=== PATIENT | female | born 1950 | race Caucasian/White ===

== ENCOUNTER 2024-01-25 06:45 | Day surgery (SDC) | payer MEDICARE, MEDICAID, SELFPAY ==
[2024-01-25] VITALS (12 sets, daily range): BP systolic 115–140; BP diastolic 58–72; PULSE 58–83; RESP 17–22; TEMP 36.3–36.6; O2SAT 92–96; BMI 31.8
--- NOTE | 2024-01-25 07:04 | ECG_ITS ---
[facility] Test Date: 2024-01-25 Pat Name: Elva Bejarano Department: Room: Gender: Female [employer] Former: : 1950 Requested By: Lisbeth Jerry Order Number: [id number] Chrystal MD: Kathryn Vergara M.D. Measurements Intervals [place] Rate: 74 P: 48 [place]: 186 QRS: 50 QRSD: 98 T: 60 QT: 391 QTc: 434 Interpretive Statements SINUS RHYTHM NONSPECIFIC T-WAVE ABNORMALITY No previous ECG available for comparison Electronically Signed On 01-25-2024 23:02:38 CDT by Kathryn Vergara M.D. [id number]
[2024-01-25] MEDS: sodium chloride 0.9% 1,000 ML 30 ML IV (07:30)
[2024-01-25 07:58] LABS: Blood Urea Nitrogen 18 mg/dL (8-23); Calcium 8.9 mg/dL (8.5-10.5); Carbon Dioxide 24 mmol/L (22-29); Chloride 101 mmol/L (98-107); Glucose 105 mg/dL (65-115); Osmolality Calculated 286 mOsm/kg (285-295); Sodium 137 mmol/L (136-145)
--- NOTE | 2024-01-25 08:54 | W.PM.OPSUD ---
Surgery/Procedure H&P Update DATE OF PROCEDURE: January 25, 2024 DATE H&P PERFORMED: 12/31/23 PRIMARY INDICATION FOR PROCEDURE: Conductive hearing loss, left ear PLANNED PROCEDURE: Operation Date: 01/25/24 08:20 Proposed Procedures p Baha Implants(Left) - Eric Nicholson MD
--- NOTE | 2024-01-25 09:07 | ANES.PREANE2 ---
Pre-Anesthetic Assessment Height/Weight: Height 1.57 m Weight 78.925 kg Temp Pulse Resp BP Pulse Ox O2 Del Method 97.6 F 75 17 128/64 96 Room Air 01/25/24 06:56 01/25/24 06:56 01/25/24 06:56 01/25/24 06:56 01/25/24 06:56 01/25/24 07:08 Operation Date: 01/25/24 08:20 Proposed Procedures p Baha Implants(Left) - Eric Nicholson MD Familial anesthetic complications: none Was Beta Boyd taken within 24 hours: N/A Last intake: Intake Last Liquid Date 01/24/24 Last Liquid Time 22:00 Last Solid Date 01/24/24 Last Solid Time 22:00 Last Intake: 23:00 Social No tobacco Exam alert and oriented x 3 Airway Submandibular: within normal limits Cervical ROM: within normal limits Mallampati: Class II Dentition: false History/ROS No significant history except as noted Pulmonary None reported CV/HEM None reported None reported Hepatic None reported GI Gastroesophageal Reflux Disease well controlled Metabolic None reported Musc/skel Osteoarthritis/DJD Neuropsych Seizure (last 2002) Anesthetic Plan ASA status: 3 Anesthesia: General Risk of > 500 ml blood loss (7ml/kg in children): No Medications/Allergies Home Medications Medication Instructions Recorded Confirmed Last Taken Type citalopram 20 mg tablet 20 mg PO DAILY 11/19/20 01/24/24 01/24/24 History denosumab 60 mg/mL subcutaneous 60 mg SUBCUT Q6M 11/19/20 01/24/24 Unknown History syringe (Prolia) fluticasone propionate 50 2 spray intranasal DAILY 11/19/20 01/24/24 01/24/24 History mcg/actuation nasal spray,suspension hydrochlorothiazide 12.5 mg capsule 12.5 mg PO DAILY 11/19/20 01/24/24 01/24/24 History lamotrigine 100 mg tablet 100 mg PO BID 11/19/20 01/24/24 01/24/24 History lisinopril 5 mg tablet 5 mg PO DAILY 11/19/20 01/24/24 01/24/24 History multivitamin 1 tab PO DAILY 11/19/20 01/24/24 01/24/24 History simvastatin 20 mg tablet 20 mg PO BEDTIME 11/19/20 01/24/24 01/24/24 History acetaminophen 500 mg tablet 1,000 mg PO Q6H PRN Fever Or Pain 01/24/24 01/24/24 Unknown History calcium carbonate 600 mg-vitamin 1 tab PO DAILY 01/24/24 01/24/24 01/24/24 History D3 10 mcg (400 unit) tablet (Calcium 600 + D(3)) cyclobenzaprine 5 mg tablet 5 mg PO BEDTIME 01/24/24 01/24/24 01/24/24 History diclofenac sodium 1 % topical gel 4 g topical QID PRN Pain 01/24/24 01/24/24 Unknown History diphenhydramine HCl 25 mg tablet 25 mg PO TID PRN swelling 01/24/24 01/24/24 Unknown History (Banophen) levocetirizine 5 mg tablet 5 mg PO QPM 01/24/24 01/24/24 01/24/24 History omeprazole 20 mg capsule,delayed 20 mg PO DAILY 01/24/24 01/24/24 01/24/24 History release Allergies Allergy/AdvReac Type Severity Reaction Status Date / Time phenobarbital Allergy Intermediate Unknown Verified 01/24/24 10:57 gabapentin [From Neurontin] Allergy Unknown Unknown Verified 01/24/24 10:57 topiramate [From Topamax] Allergy Unknown Unknown Verified 01/24/24 10:57 [facility] Anesthesia Social History Smoking and tobacco/nicotine status: never used tobacco/nicotine Data Anesthesia 01/25/24 07:25 BMP 01/25/24 07:25 Sodium 137 Chloride 101 Carbon Dioxide 24 BUN 18 Creatinine 0.6 Glucose 105 Calcium 8.9 Cardiac Studies: No Data to Display
[2024-01-25] MEDS: ceFAZolin 2,000 MG in sodium chloride 0.9% (plus) 50 ML 100 MG IV (09:13)
[2024-01-25 09:24] LABS: Anion Gap 16.1 (5-19); Potassium 4.1 mmol/L (3.5-5.1)
[2024-01-25] MEDS: neomycin-poly-bacitracin oint 28 gm 1 APPLIC TOPICAL (10:15)
[2024-01-25] MEDS: lidocaine-epi 1% 20 mL INJ INJECTION (10:15)
--- NOTE | 2024-01-25 10:24 | P.OP_ITS ---
Operative Report Date of procedure: January 25, 2024 Pre-op diagnosis: Conductive hearing loss, left ear Post-op diagnosis: same Post-op diagnosis: Conductive hearing loss, left ear Post-op findings: Normal left post auricular exam Procedure done: Left Bone Anchored Hearing Aid Placement Implants: Left bone anchored hearing aid abutment Specimens removed/disposition: None Pathology: none sent Surgeon: Eric Nicholson Surgeon: Eric Nicholson MD Prior Authorization Technician: Kaushik Sousa Anesthesia: General Estimated blood loss (mL): 5 IV fluids (mL): 900 Complications: None Findings: Normal left post auricular exam Condition: stable Disposition: PACU Brief History: 73 yo wf with a h/o conductive hearing loss of the left ear who desires surgical therapy. Procedure: The patient was identified the preoperative area and was taken to the operating where she was placed on the operating table in the supine position. Anesthesia was obtained with general anesthesia and the table was then turned 180 degrees. The patient's left postauricular hairbearing skin was shaved and the incision was marked out 55 mm posterior to the external auditory canal on the left in the appropriate position. The skin thickness was measured and the incision was then injected with local anesthesia. A 12 mm implant was selected for implantation. Based on the measurements obtained above. The patient was then prepped and draped in the usual sterile fashion and the incision was made with a 5 mm punch biopsy blade. The soft tissue was removed down to the mastoid cortex. A mastoid emissary vein was encountered and was occluded with bone wax. The cannula and pilot boat captain drill were used to drill a hole to the 3 mm level while irrigated with a copious amount normal saline. There was good bone at the botto m of the 3 mm countersink hole so the countersink drill bit was used. Again there was solid bone at the depth of the 4mm pilot boat captain hole. At this point the countersink was used to enlarge the hole to 4mm depth. The implant was then placed in the bony pole created using the torque limited drill while irrigating with saline. Once the implant was in place, the wound was inspected. At this point triple antibiotic ointment was placed around the wound/implnat and a nonstick dressing was applied to the wound followed by the healing cap. Once this was accomplished the procedure was terminated and control of the patient was returned to anesthesia where she underwent an uneventful reversal of anesthesia and was taken to the recovery room in stable condition. There were no operative or anesthetic complications.
--- NOTE | 2024-01-25 10:27 | PC.NURSE ---
LMA removed immediately upon arrival to PACU. Aroused with speech.
--- NOTE | 2024-01-25 10:33 | PC.NURSE ---
Surgical site left side of head clean and dry. No active bleeding or hematoma.
--- NOTE | 2024-01-25 11:02 | PC.NURSE ---
VS stable. no bleeding or hematoma at surgical site
== END 2024-01-25 11:45 | disposition home or self-care (01) ==
PROVIDERS: Anesthesiology; Family Provider Family Medicine; PCP Family Medicine; Visit Provider Specialist
PROC: (CPT 69710; principal; 2024-01-25 08:10)
DX: H90.12 Conductive hearing loss, unilateral, left ear, with unrestricted hearing on the contralateral side (principal); K21.9 Gastro-esophageal reflux disease without esophagitis
CPT/HCPCS: 69710; 80048; 93005; J0690; J2371; J2704; J3010; J7030; L8690

== ENCOUNTER → 2024-03-29 15:15 | Outpatient (BNVA) | payer MEDICARE, MEDICAID, SELFPAY | PROVIDERS: Family Provider Family Medicine; PCP Family Medicine; Visit Provider Podiatrist Foot & Ankle Surgery | DX: L84 Corns and callosities (principal) | CPT/HCPCS: 99213 ==

== ENCOUNTER 2024-11-17 12:59 | Outpatient (CLI) | payer MEDICARE, MEDICAID, SELFPAY ==
--- NOTE | 2024-11-17 13:05 | XR_ITS ---
WS: [id number] Lumbar spine, 3 views, 11/17/2024 Clinical Data: LOW BACK PAIN Comparison: None. Findings: There is a T12 and L3 compression fracture. These fractures appear old with loss of more than 50% of the central vertebral body height. There is also a wedge compression of T10, probably old. There is disc narrowing at T11-T12, L1-2-L3 and L3-L4. There is diffuse osteoporosis. The transverse processes and SI joints are normal. There is calcification in the wall of the abdominal aorta but no aneurysm. XR/XR lumbar spine 2-3V* [id number] Impression: 1. Old compression fractures of T12, L3 and probably T10. 2. Multilevel degenerative disc narrowing with osteoporosis.
--- NOTE | 2024-11-17 13:05 | XR_ITS ---
WS: [id number] Right hip, AP and frog-leg views, 11/17/2024 Clinical Data: PAIN IN RIGHT HIP Comparison: None. Findings: No fractures or dislocations are seen. The right hip joint shows no erosion, sclerosis, narrowing, cyst formation or fragmentation of the right femoral head. The soft tissues are not remarkable. The adjacent pelvis is normal. XR/XR hip RT 2-3V wo/w pel* [id number] Impression: Negative right hip.
== END 2024-11-17 13:00 | disposition home or self-care (01) ==
LOC: RAD 13:03
PROVIDERS: Family Provider Family Medicine; PCP Family Medicine; Visit Provider Family Medicine
DX: M25.551 Pain in right hip (principal); M79.604 Pain in right leg; M48.54XD Collapsed vertebra, not elsewhere classified, thoracic region, subsequent encounter for fracture with routine healing; M48.56XD Collapsed vertebra, not elsewhere classified, lumbar region, subsequent encounter for fracture with routine healing; X58.XXXD Exposure to other specified factors, subsequent encounter; R93.7 Abnormal findings on diagnostic imaging of other parts of musculoskeletal system; M81.0 Age-related osteoporosis without current pathological fracture; M51.369 Other intervertebral disc degeneration, lumbar region without mention of lumbar back pain or lower extremity pain; M51.34 Other intervertebral disc degeneration, thoracic region; I70.0 Atherosclerosis of aorta
CPT/HCPCS: 72100; 73502

== ENCOUNTER → 2025-04-18 13:22 | Outpatient (BNVA) | payer MEDICARE, MEDICAID, SELFPAY | PROVIDERS: Family Provider Family Medicine; PCP Family Medicine; Visit Provider Podiatrist Foot & Ankle Surgery | DX: M76.821 Posterior tibial tendinitis, right leg (principal) | CPT/HCPCS: 99203 ==